=== PATIENT | female | born 1995 | race African-American/Black ===

== ENCOUNTER 2018-12-14 11:12 | Emergency (ER) | payer OTHER, SELFPAY ==
[2018-12-14 14:23] LABS: Absolute Lymphocytes (CBC) 1.3 K/uL (0.7-4.9); Basophils % 0.9 % (0-1.3); Hematocrit 42.9 % (36.0-45.0); Lymphocytes % 28.8 % (15.3-44.8); MPV 8.2 fL (7.6-11.3); RBC Red Blood Cell Count 4.98 M/uL (3.86-4.86)
--- NOTE | 2018-12-14 14:27 | RAD REPORT ---
EXAM DESCRIPTION: RAD - Chest Pa And Lat (2 Views) - 12/14/2018 2:16 pm CLINICAL HISTORY: SOB, abd pain;Chest pain Chest pain. COMPARISON: No comparisons FINDINGS: The lungs are clear. The heart is normal in size. No displaced fractures. IMPRESSION: No acute or concerning finding suspected.
[2018-12-14 14:39] LABS: ALT/SGPT 24 U/L (12-78); AST/SGOT 20 U/L (15-37); Albumin 3.4 g/dL (3.4-5.0); Alkaline Phosphatase 89 U/L (45-117); BUN Blood Urea Nitrogen 8 mg/dL (7-18); Bicarbonate 28 mmol/L (21-32); Bilirubin Direct 0.2 mg/dL (0-0.2); Bilirubin Total 0.4 mg/dL (0.2-1.0); Glucose Level 89 mg/dL (74-106); Lipase 53 U/L (73-393); NT PRO-BNP 61 pg/mL (<125); Potassium 3.8 mmol/L (3.5-5.1); Protein, Total 8.8 g/dL (6.4-8.2); Sodium Level 139 mmol/L (136-145); Troponin (Emerg Dept Use Only) < 0.02 ng/mL (0.0-0.045)
[2018-12-14 14:47] LABS: Protime INR 1.09
[2018-12-14 14:54] LABS: Urine Blood NEGATIVE (NEG); Urine Glucose NEGATIVE (NEG); Urine Protein NEGATIVE (NEG); Urine Specific Gravity 1.025 (1.005-1.030); Urine pH 6.5 (5.0-7.0)
[2018-12-14 15:09] LABS: Urine Bacteria 20-50 /HPF (<20); Urine Culture Reflex Order REFLEXED; Urine RBC <5 /HPF (NONE SEEN)
--- NOTE | 2018-12-14 15:42 | EKG ---
Test Date: 2018-12-14 Test Time: 14:46:19 Candy Butcher: HOLLY MEASUREMENT RESULTS: Intervals: Rate: 74 TN: 154 QRSD: 78 QT: 392 QTc: 435 [place]: P: 58 TN: 154 QRS: 80 T: 41 INTERPRETIVE STATEMENTS: Sinus rhythm with premature supraventricular complexes Otherwise normal ECG No previous ECG available for comparison Electronically Signed On 12-14-18 15:41:35 INTENSIVE CARE UNIT REGISTERED NURSE by Salas Mcgill
--- NOTE | 2018-12-14 16:07 | RAD REPORT ---
EXAM DESCRIPTION: CT - Chest Abdomen Pelvis W Cont - 12/14/2018 3:42 pm CLINICAL HISTORY: Right-sided chest pain, right-sided abdominal pain, posterior left abdominal pain, shortness of breath COMPARISON: Chest two views same date TECHNIQUE: Following dynamic enhancement using 100 milliliters nonionic IV contrast, axial imaging o f the chest, abdomen and pelvis was performed. Biphasic technique was utilized through the abdomen. Oral contrast was administered. All CT scans are performed using dose optimization technique as appropriate and may include automated exposure control or mA/KV adjustment according to patient size. FINDINGS: Lungs are clear of mass and infiltrate. No pleural effusion, pleural thickening or pneumot horax. No aortic abnormality seen. No pericardial thickening or effusion. Pulmonary arterial tree odalis ssly normal. This was not a dedicated pulmonary arterial tree study. Mediastinal and hilar regions sh ow no mass or abnormal lymphadenopathy. No chest wall mass or axillary lymphadenopathy. The liver, spleen and pancreas show no suspicious findings. Gallbladder and biliary tree are unremark able. Gallstones can be occult on CT imaging. Symmetric renal function is seen with no mass or hydro nephrosis. No pyelonephritis identifiable. Partially filled urinary bladder shows no suspicious findi ng. No uterus or ovarian suspicious finding. No adrenal abnormalities. No dilated bowel loops or focal bowel wall thickening. No acute GI findings seen. No acute or destructive bony process. No significant vascular findings. IMPRESSION: CT chest, abdomen and pelvis imaging shows no significant or suspicious finding.
[2018-12-14] MEDS ORDERED: KETOROLAC 30 MG/ML INJ ONE (16:38)
[2018-12-14] MEDS ORDERED: ACETAMINOPHEN 500 MG TAB ONE (16:38)
--- NOTE | 2018-12-14 16:57 | ER ---
Nurse's Notes [facility] Name: Brenda Lowry Age: 23 yrs Sex: Female : 1995 Arrival Date: 12/14/2018 Time: 11:15 Bed 16 Private MD: None, None Diagnosis: acute abdominal pain;shortness of breath;frequent PVC's Presentation: 12/14 12:04 Presenting complaint: Patient states: "Since Friday of last week, whenever I'm aj1 walking normally when I go to breathe in it takes a little bit and theres slight wheezing and then the last couple of days my left side hurts a little bit and it goes between and sharp and a dull pain. This morning when I was inhaling both of my sides were hurting but now it seems not so bad" Denies N/V/D. Reports dry cough, nasal congestion. Denies fever. Transition of care: patient was not received from another setting of care. Onset of symptoms was 2018. Risk Assessment: Do you want to hurt yourself or someone else? Patient reports no desire to harm self or others. Initial Sepsis Screen: Does the patient meet any 2 criteria? No. Patient's initial sepsis screen is negative. Does the patient have a suspected source of infection? No. Patient's initial sepsis screen is negative. Care prior to arrival: None. 12:04 Method Of Arrival: Ambulatory aj1 12:04 Acuity: TEETEE 3 aj1 Triage Assessment: 12:06 General: Appears in no apparent distress. comfortable, Behavior is calm, cooperative, aj1 appropriate for age. Pain: Complains of pain in posterior aspect of right lateral abdomen and posterior aspect of left lateral abdomen Pain currently is 2 out of 10 on a pain scale. at worst was 8 out of 10 on a pain scale. Neuro: Level of Consciousness is awake, alert, obeys commands, Oriented to person, place, time, situation. Cardiovascular: Patient's skin is warm and dry. Respiratory: Airway is patent Respiratory effort is even, unlabored, Respiratory pattern is regular, symmetrical. GI: Patient currently denies diarrhea, nausea, vomiting. 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 - Social history:: Smoking status: Patient/guardian denies using tobacco. - Ebola Screening: : Patient denies travel to an Ebola-affected area in the 21 days before illness onset. - Family history:: not pertinent. - Hospitalizations: : No recent hospitalization is reported. Screenin:43 Abuse screen: Denies threats or abuse. Denies injuries from another. Nutritional ph screening: No deficits noted. Tuberculosis screening: No symptoms or risk factors identified. Fall Risk None identified. Assessment: 13:15 General: Appears in no apparent distress. comfortable, obese, well groomed, Behavior is ph calm, cooperative, appropriate for age, Denies fever, feeling ill. Pain: Complains of pain in posterior aspect of left lateral abdomen and chest. Neuro: Level of Consciousness is awake, alert, obeys commands, Oriented to person, place, time, situation. Cardiovascular: Reports chest pain, shortness of breath. Respiratory: Reports shortness of breath on exertion Airway is patent Respiratory effort is even, unlabored, Respiratory pattern is regular, symmetrical. GI: Patient currently denies diarrhea, nausea, vomiting. Derm: Skin is intact, Skin is pink, warm \\T\\ dry. Musculoskeletal: Circulation, motion, and sensation intact. Range of motion: intact in all extremities. 14:28 Reassessment: Patient appears in no apparent distress at this time. Patient and/or ph family updated on plan of care and expected duration. Pain level reassessed. Patient is alert, oriented x 3, equal unlabored respirations, skin warm/dry/pink. Pt ambulated to restroom w/ steady gait, no distress noted, urine sample obtained. 15:30 Reassessment: Patient appears in no apparent distress at this time. Patient and/or ph family updated on plan of care and expected duration. Pain level reassessed. Patient is alert, oriented x 3, equal unlabored respirations, skin warm/dry/pink. 16:53 Reassessment: Patient appears in no apparent distress at this time. Patient and/or ph family updated on plan of care and expected duration. Pain level reassessed. Patient is alert, oriented x 3, equal unlabored respirations, skin warm/dry/pink. Vital Signs: 12:06 BP 140 / 98; Pulse 59; Resp 20; Temp 98.3; Pulse Ox 97% on R/A; Weight 127.01 kg (R); aj1 Height 5 ft. 6 in. (167.64 cm) (R); Pain 2/10; 13:30 BP 137 / 82; Pulse 76; Resp 18; Pulse Ox 100% on R/A; ph 14:48 BP 126 / 79; Pulse 75; Resp 18; Pulse Ox 100% on R/A; ph 16:30 BP 138 / 78; Pulse 76; Resp 18; Temp 97.8; Pulse Ox 99% on R/A; ph 12:06 Body Mass Index 45.19 (127.01 kg, 167.64 cm) aj1 ED Course: 11:15 Patient arrived in ED. mr 11:16 None, None is Private Physician. mr 12:06 Triage completed. aj1 12:06 Arm band placed on Patient placed in waiting room. aj1 12:43 Bibi Rogers, RN is Primary Nurse. ph 12:43 David Pickett MD is Attending Physician. wa 12:44 Patient has correct armband on for positive identification. Bed in low position. Call ph light in reach. Side rails up X 1. Pulse ox on. NIBP on. Door closed. Noise minimized. Warm blanket given. Head of bed elevated. 13:40 Inserted saline lock: 20 gauge in left antecubital area, using aseptic technique. ph 14:17 Chest Pa And Lat (2 Views) XRAY In Process Unspecified. EDMS 14:53 EKG done, by certified technician specialist. reviewed by David Pickett MD. sm3 15:42 CT Chest, Abdomen, Pelvis - W/Contrast In Process Unspecified. EDMS 16:54 Domenic Grayson MD is Referral Physician. wa 17:15 No provider procedures requiring assistance completed. IV discontinued, intact, ph bleeding controlled, No redness/swelling at site. Pressure dressing applied. Administered Medications: 16:49 Drug: TORadol 30 mg Route: IVP; Site: left antecubital; ph 17:15 Follow up: Response: No adverse reaction ph 16:49 Drug: Tylenol 1000 mg Route: PO; ph 17:15 Follow up: Response: No adverse reaction ph Outcome: 16:56 Discharge ordered by . wa 17:17 Patient left the ED. ph 17:17 Discharged to home ambulatory. ph 17:17 Condition: good 17:17 Discharge instructions given to patient, Instructed on discharge instructions, follow up and referral plans. medication usage, Demonstrated understanding of instructions, follow-up care, medications, Prescriptions given X 1. Signatures: Dispatcher [employer] EDBrenna Vázquez RN RN aj1 Cinda Tripathi Patricia, RN RN [facility], MD HOLLI Hernandez tn Faheem, Tessa 3
--- NOTE | 2018-12-14 16:57 | EDPHYS ---
Physician Documentation [facility] Name: Brenda Lowry Age: 23 yrs Sex: Female : 1995 Arrival Date: 12/14/2018 Time: 11:15 Bed 16 Private MD: None, None ED Physician David Pickett HPI: 12/14 15:33 This 23 yrs old Black Female presents to ER via Ambulatory with complaints of Abdominal wa Pain, Shortness Of Breath. 15:33 The patient has shortness of breath with light activity. Onset: The symptoms/episode wa began/occurred 3 day(s) ago. Duration: The symptoms are intermittent, with episodes lasting 3 minute(s) at a time. The patient's shortness of breath is aggravated by exertion, is alleviated by nothing. Associated signs and symptoms: Pertinent positives: chest pain, painful breathing and abd pain, Pertinent negatives: fever, nausea, vomiting. Severity of symptoms: At their worst the symptoms were moderate in the emergency department the symptoms are unchanged. The patient has not experienced similar symptoms in the past. The patient has not recently seen a physician. denies past med problems. denies drug use. denies hormonal control use. denies h/o blood clots in family. 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 - Social history:: Smoking status: Patient/guardian denies using tobacco. - Ebola Screening: : Patient denies travel to an Ebola-affected area in the 21 days before illness onset. - Family history:: not pertinent. - Hospitalizations: : No recent hospitalization is reported. ROS: 15:38 Constitutional: Negative for fever, chills, and weight loss, Eyes: Negative for injury, wa pain, redness, and discharge, ENT: Negative for injury, pain, and discharge, Neck: Negative for injury, pain, and swelling, Back: Negative for injury and pain, : Negative for injury, bleeding, discharge, and swelling, MS/Extremity: Negative for injury and deformity, Skin: Negative for injury, rash, and discoloration, Neuro: Negative for headache, weakness, numbness, tingling, and seizure, Psych: Negative for depression, anxiety, suicide ideation, homicidal ideation, and hallucinations. 15:38 Cardiovascular: Positive for chest pain, Negative for edema, orthopnea, palpitations. 15:38 Respiratory: Positive for shortness of breath, on exertion. Negative for hemoptysis, orthopnea. 15:38 Abdomen/GI: Positive for abdominal pain, of the left lower quadrant. 15:38 All other systems are negative. Exam: 15:40 Head/Face: Normocephalic, atraumatic. Eyes: Pupils equal round and reactive to light, wa extra-ocular motions intact. Lids and lashes normal. Conjunctiva and sclera are non-icteric and not injected. Cornea within normal limits. Periorbital areas with no swelling, redness, or edema. ENT: Nares patent. No nasal discharge, no septal abnormalities noted. Tympanic membranes are normal and external auditory canals are clear. Oropharynx with no redness, swelling, or masses, exudates, or evidence of obstruction, uvula midline. Mucous membranes moist. Neck: Trachea midline, no thyromegaly or masses palpated, and no cervical lymphadenopathy. Supple, full range of motion without nuchal rigidity, or vertebral point tenderness. No Meningismus. Chest/axilla: Normal chest wall appearance and motion. Nontender with no deformity. No lesions are appreciated. Cardiovascular: Regular rate and rhythm with a normal S1 and S2. No gallops, murmurs, or rubs. Normal PMI, no JVD. No pulse deficits. Respiratory: Lungs have equal breath sounds bilaterally, clear to auscultation and percussion. No rales, rhonchi or wheezes noted. No increased work of breathing, no retractions or nasal flaring. Back: No spinal tenderness. No costovertebral tenderness. Full range of motion. Skin: Warm, dry with normal turgor. Normal color with no rashes, no lesions, and no evidence of cellulitis. MS/ Extremity: Pulses equal, no cyanosis. Neurovascular intact. Full, normal range of motion. Neuro: Awake and alert, GCS 15, oriented to person, place, time, and situation. Cranial nerves II-XII grossly intact. Motor strength 5/5 in all extremities. Sensory grossly intact. Cerebellar exam normal. Normal gait. Psych: Awake, alert, with orientation to person, place and time. Behavior, mood, and affect are within normal limits. 15:40 Constitutional: The patient appears in no acute distress, alert, obese. 15:40 Abdomen/GI: Inspection: obese Bowel sounds: normal, Palpation: soft, in all quadrants, mild abdominal tenderness, in the left lower quadrant. Vital Signs: 12:06 BP 140 / 98; Pulse 59; Resp 20; Temp 98.3; Pulse Ox 97% on R/A; Weight 127.01 kg (R); aj1 Height 5 ft. 6 in. (167.64 cm) (R); Pain 2/10; 13:30 BP 137 / 82; Pulse 76; Resp 18; Pulse Ox 100% on R/A; ph 14:48 BP 126 / 79; Pulse 75; Resp 18; Pulse Ox 100% on R/A; ph 16:30 BP 138 / 78; Pulse 76; Resp 18; Temp 97.8; Pulse Ox 99% on R/A; ph 12:06 Body Mass Index 45.19 (127.01 kg, 167.64 cm) aj1 MDM: 12:43 Patient medically screened. wa 15:40 Differential diagnosis: pneumonia, pulmonary edema, Pulmonary Embolism reactive airway wa disease, will work up to exclude acutelu emergent illness. Data reviewed: vital signs, nurses notes, lab test result(s), EKG, radiologic studies. Test interpretation: by ED physician or midlevel provider: EKG: interp by ia: HR 74. sinus. nml axis. mild ST elevation noted diffusely. multiple PVCs. 15:45 Test interpretation: by ED physician or midlevel provider: labs noted wnl, including nm d-dimer. . 16:50 Test interpretation: by ED physician or midlevel provider: CT chest/abd/pelvis: no wa acute process. Special discussion: work up essentially negative except frequent PVCs on EKG. will start low dose beta gregory and refer to cardiology. needs PCP. will give referral. 12/14 13:31 Order name: NT PRO-BNP; Complete Time: 15:19 wa 12/14 13:31 Order name: Basic Metabolic Panel; Complete Time: 15:19 12/14 13:31 Order name: CBC with Diff; Complete Time: 15:19 12/14 13:31 Order name: LFT's; Complete Time: 15:19 nm 12/14 13:31 Order name: PT-INR; Complete Time: 15:19 nm 12/14 13:31 Order name: Troponin (emerg Dept Use Only); Complete Time: 15:19 nm 12/14 13:31 Order name: Chest Pa And Lat (2 Views) XRAY; Complete Time: 14:30 nm 12/14 13:32 Order name: Creatinine for Radiology; Complete Time: 15:19 nm 12/14 13:32 Order name: Lipase; Complete Time: 15:19 nm 12/14 13:32 Order name: D-Dimer; Complete Time: 15:20 nm 12/14 13:35 Order name: Urine Microscopic Only; Complete Time: 15:19 nm 12/14 14:49 Order name: Urine Dipstick--Ancillary (enter results); Complete Time: 15:20 12/14 14:49 Order name: Urine --Ancillary (enter results); Complete Time: 15:19 12/14 15:13 Order name: Urine Culture [facility] 12/14 13:31 Order name: EKG; Complete Time: 13:33 nm 12/14 13:31 Order name: Cardiac monitoring; Complete Time: 14:56 nm 12/14 13:31 Order name: EKG - Nurse/Tech; Complete Time: 15:13 nm 12/14 13:31 Order name: IV Saline Lock; Complete Time: 15:13 nm 12/14 13:31 Order name: Labs collected and sent; Complete Time: 15:13 nm 12/14 13:31 Order name: O2 Sat Monitoring; Complete Time: 15:13 nm 12/14 13:35 Order name: Urine Dipstick-Ancillary (obtain specimen); Complete Time: 14:51 nm 12/14 13:35 Order name: Urine Test (obtain specimen); Complete Time: 14:51 nm 12/14 15:22 Order name: CT Chest, Abdomen, Pelvis - W/Contrast; Complete Time: 16:24 nm Administered Medications: 16:49 Drug: TORadol 30 mg Route: IVP; Site: left antecubital; ph 17:15 Follow up: Response: No adverse reaction ph 16:49 Drug: Tylenol 1000 mg Route: PO; ph 17:15 Follow up: Response: No adverse reaction ph Disposition: 12/14/18 16:56 Discharged to Home. Impression: acute abdominal pain, shortness of breath, frequent PVC's. - Condition is Stable. - Discharge Instructions: Abdominal Pain, Adult, Premature Ventricular Contraction, Shortness of Breath, [id number]-[id number]. - Prescriptions for metoprolol succinate 25 mg Oral tablet extended release 24 hr - take 1 tablet by ORAL route once daily; 40 tablet. - Medication Reconciliation Form, Thank You Letter, Antibiotic Education, Prescription Opioid Use form. - Follow up: Domenic Grayson MD; When: 2 - 3 days. - Problem is new. - Symptoms have improved. - Notes: take medication as prescribed. see the primary doctor or further follow up. return to ER immediately for any drastically worsening concerns Signatures: Dispatcher [employer] EDBrenna Vázquez RN RN aj1 Bibi Rogers RN RN ph [facility], MD MD reinier Hernandez Corrections: (The following items were deleted from the chart) 17:17 16:56 12/14/2018 16:56 Discharged to Home. Impression: acute abdominal pain; shortness ph of breath; frequent PVC's. Condition is Stable. Forms are Medication Reconciliation Form, Thank You Letter, Antibiotic Education, Prescription Opioid Use. Follow up: Domenic Grayson; When: 2 - 3 days. Problem is new. Symptoms have improved. wa
[2018-12-14 17:26] VITALS: TEMP 98.3
[2018-12-14 17:27] VITALS: O2SAT 100
[2018-12-14 17:29] VITALS: BP 126/79
== END 2018-12-14 17:17 | disposition home or self-care (01) ==
LOC: ER 11:12
DX: I49.3 Ventricular premature depolarization (principal); R06.02 Shortness of breath; R10.9 Unspecified abdominal pain
CPT/HCPCS: 36415; 71046; 71260; 74177; 80048; 80076; 81003; 81015; 81025; 83690; 83880; 84484; 85025; 85379; 85610; 87086; 87088; 93005; 96374; 99284; Q9967